=== PATIENT | female | born 1965 | race Caucasian/White ===

== ENCOUNTER → 2019-03-18 14:00 | Oncology outpatient (ONC) | payer BC, SELFPAY ==
[2019-03-04 12:52] VITALS: BP 125/69; PULSE 71; RESP 16; TEMP 37; O2SAT 100
[2019-03-04] MEDS: IRON SUCROSE 300 MG in SODIUM CHLORIDE 0.9% 100 ML 115 ML IV (13:24)
[2019-03-18] MEDS: IRON SUCROSE 300 MG in SODIUM CHLORIDE 0.9% 100 ML 115 ML IV (14:05)
--- NOTE | 2019-03-18 15:49 | PC.NURSE ---
Pt tolerated infusion w/o difficulty. Speech clear. RR equal and unlabored. Interacting with staff appropriately. reports feeling good. No acute s/s of distress noted.
== END ==
PROVIDERS: Family Provider Family Medicine; PCP Family Medicine
DX: D50.9 Iron deficiency anemia, unspecified (principal)
CPT/HCPCS: 96365; 96366; J1756

== ENCOUNTER → 2019-04-28 09:21 | Outpatient (CLI) | payer BC, SELFPAY ==
[2019-04-28 09:50] LABS: Add Manual Diff / Slide Review NO; Basophils Absolute Auto 0 /uL (0-100); Basophils Percent Auto 0.8 % (0-2); Eosinophils Absolute Auto 100 /uL (0-450); Eosinophils Percent Auto 1.2 % (2-4); Hematocrit 36.9 % (36-46); Hemoglobin 12.3 g/dL (12.0-16.0); Lymphocytes Absolute Auto 1600 /uL (1100-4500); Lymphocytes Percent Auto 35.1 % (25-40); Mean Corpuscular HGB Conc 33.3 % (30-36); Mean Corpuscular Hemoglobin 25.1 PG (26-34); Mean Corpuscular Volume 75.4 fL (80-100); Monocytes Absolute Auto 400 /uL (0-900); Monocytes Percent Auto 9.5 % (3-14); Neutrophils Absolute Auto 2500 /uL (1500-7000); Neutrophils Percent Auto 53.4 % (50-75); Platelet Count 291 X10^3/uL (150-400); Red Blood Cell Count 4.89 X10^6/uL (4.0-5.2); Red Cell Distribution Width 25.6 % (11.6-14.8); White Blood Cell Count 4.6 X10^3/uL (4.5-11.0)
[2019-04-28 10:17] LABS: Hypochromasia 1+; Poikilocytosis 1+
[2019-04-28 10:18] LABS: Anisocytosis 2+
== END ==
PROVIDERS: Family Provider Family Medicine; PCP Family Medicine
DX: Z01.818 Encounter for other preprocedural examination (principal)
CPT/HCPCS: 36415; 85025; 86850; 86900; 86901

== ENCOUNTER 2019-05-03 11:00 | Observation (INO) | payer BC, SELFPAY ==
[2019-04-29 15:15] VITALS: BMI 28.8
[2019-05-02] VITALS (27 sets, daily range): BP systolic 60–138; BP diastolic 30–98; PULSE 77–131; RESP 16–24; TEMP 36.1–37; O2SAT 95–100; BMI 28.8
--- NOTE | 2019-05-02 | PATH_ITS ---
[facility] Accession Number: [id number] . 01 Material submitted: . uterus - UTERUS AND CERVIX . 02 Diagnosis: Uterus and Cervix, Hysterectomy (Weight 387 grams, Submitted As Multiple Pieces): Cervix with no significant histomorphologic abnormality; negative for dysplasia or malignancy. Endocervix with acute and chronic endocervicitis, benign microglandular hyperplasia, and prominent Nabothian gland cysts. Myometrium with adenomyosis. MRV 05/05/2019 1146 Local . 02 Electronically signed: . Daphney Beckett MD, Pathologist NPI- [id number] . 01 Gross description: . Received in formalin, labeled uterus and cervix, is a uterus in multiple pieces (387 grams, 19.2 x 10.0 x 7.2 cm in aggregate). The ovaries and fallopian tubes are absent. The specimen cannot be oriented as to anterior and posterior. The cervix (2.2 cm AP, 2.5 ML) has a transverse os and patent endocervical canal. Lined with multiple cystic cavities (0.1 cm-0.7 cm) containing clear colorless gelatinous material. The upper uterine body is distorted making the endometrium and myometrium difficult to grossly measure. The cut surface is dalton with a whorled appearance. The serosa is pale dalton, smooth and shiny. Section code: (A1) cervix; (A2) cervix, opposite side; (A3-A8) parenchyma, signs sales representative. ([id number]) /MRV 05/04/2019 2120 Local . 02 Pathologist provided ICD-10: N80.0 . 02 CPT . 383414 Performed at: [address], [place], [place] [id number] MD Tyrone Bean MD Phone: [phone] Performed at: 02 [facility] [id number] [place] [id number] MD Dianne Lara MD Phone: [phone]
--- NOTE | 2019-05-02 07:21 | SUR.OPER ---
Lithotomy on padded OR bed, head on pillow, arms secured on padded arm boards at <90 degrees abduction. Legs secured in padded yellow fins stirrups.
--- NOTE | 2019-05-02 07:22 | PM.PREOP ---
Pre-operative Note Interval Note History & Physical reviewed/Exam performed by Physician: Yes Changes to H&P: No ASA Class (for procedural sedation): II
[2019-05-02] MEDS: LACTATED RINGERS 1,000 ML 42 ML IV ×2 (07:24→08:56)
[2019-05-02] MEDS: ACETAMINOPHEN 325 MG TABLET 975 MG PO (07:26)
[2019-05-02] MEDS: SCOPOLAMINE 1 PATCH TOP ×2 (07:26)
[2019-05-02] MEDS: CELECOXIB 200 MG CAPSULE 400 MG PO (07:26)
[2019-05-02] MEDS: CEFOTETAN 2 GM/50 ML PIGGYBACK IV (07:41)
[2019-05-02] MEDS: BUPIVACAINE 0.5% W/ EPI (PF) 10 ML VIAL 15 ML INJ (08:06)
--- NOTE | 2019-05-02 09:32 | PM.GYNOP.1 ---
Operative Date/Time/Diagnoses Date of procedure: 05/02/19 Time of procedure: 09:32 Pre-op diagnosis: Menometrorrhagia Anemia Adenomyosis Post-op diagnosis: same Procedure & Clinicians Procedure: Procedures Operation Date: 05/02/19 07:45 Actual Procedures Side Surgeon p Vaginal Hysterectomy Fan Cheema MD Indications: Menometrorrhagia Adenomyosis Anemia Surgeon: Fan Cheema Professor Of Communication And Writing: Mehreen William Anesthesia Type: General (Laryngeal mask anesthesia) Operative Notes Closure Type: primary Specimen(s): uterus Estimated blood loss (mL): 200 Blood products transfused: none Procedure in detail: The patient was placed supine upon the operating table and anesthetized. She was then placed in the dorsal lithotomy position and examined under anesthesias. The patient was then draped and prepared in usual fashion. a posterior weighted retractor was set in place Madina repeat character was placed anteriorly. Uterine cervix is grasped with two tooth tenacula. Circumferential injection of 0.5% Marcaine and 1 to [id number] epinephrine was then performed without incident. A sharp knife incision was then made circumferentially around the cervix. The bladder was dissected down sharply and pushed in a cephalad direction. Peritoneal cavity was open. Posterior peritoneum was then opened through the vagina. A large posterior weighted retractor was set in place. The uterosacral ligaments were bilaterally clamped and size is suture ligated with 1. Chromic suture. these pedicles were held. The cardinal ligaments were then bilaterally clamped incised and suture ligated. Uterine vessels were bilaterally clamped incised and suture ligated. 3 additional clamps were then taken. If this juncture visualization was impossible to get to the tubo-ovarian round period the cervix and part of the lower uterine segment were then amputated and serial bites were taken to the fundus until the uterus could be delivered. The left tube over and rounds were clamped free tied and suture ligated. The right tubo-ovarian rounds were clamped incised free tied and suture ligated. The uterus was removed in toto. Pedicles were looked at and there was one bleeding from the inferior portion of the uterosacral ligament on the left-hand side which was grasped and suture ligated. No further bleeding points were seen. The perineum was closed with a running 0 chromic suture. no bleeding points were seen. Angle sutures of 1. Chromic suture were then placed. the vaginal cuff was closed with chromic suture. no bleeding points were seen. The bladder was emptied and the urine was perfectly clear. There was no bleeding at the end of the procedure. patient was taken to the recovery room in satisfactory condition Post-operative Plan for aftercare: Acute care
[2019-05-02] MEDS: fentaNYL 100 MCG/2 ML INJ IV ×4 (09:40→09:55)
--- NOTE | 2019-05-02 09:52 | SUR.PHASEI ---
reassessed pt pain level, pt stated low thinking this author was asking location of pain, described to pt the 0 - 10 pain scale, pt. states 10.
--- NOTE | 2019-05-02 09:58 | SUR.PHASEI ---
@ 0945 placed pt in trendelenburg due to hypotensive
[2019-05-02] MEDS: HYDROMORPHONE 2 MG INJ IV ×8 (10:00→10:35)
--- NOTE | 2019-05-02 10:04 | SUR.PHASEI ---
Pt remains in trendelenburg B/P improving. Pt rating pain @ a 10
--- NOTE | 2019-05-02 10:11 | SUR.PHASEI ---
medicating as ordered, pt continues to rate pain at a 10. B/P on low side, remains in trendeleburg position.
[2019-05-02] MEDS: LACTATED RINGERS 1,000 ML 120 ML IV (10:30)
--- NOTE | 2019-05-02 10:49 | SUR.PHASEI ---
pt. is currently sleeping soundly since 1040. VVS O2 sats 98 room air
--- NOTE | 2019-05-02 11:04 | SUR.PHASEI ---
pt remains asleep
[2019-05-02] MEDS: OXYCODONE/ACETAMINOPHEN 5/325 TABLET 2 TAB PO ×3 (11:55→21:57)
[2019-05-02] MEDS: LACTATED RINGERS 1,000 ML 100 ML IV ×2 (12:15→23:42)
--- NOTE | 2019-05-02 13:27 | PC.NURSE ---
Assess- Patient had a vaginal hysterectomy. When she first came up to the floor she was in crying and in a lot of pain. Given 2 percocet for discomfort and helpful. Patient did have a moderate amount of red blood to her pad, so this was changed. She has ivf infusing and her skin check was clear. Resting comfortably at this time.
[2019-05-02] MEDS: SODIUM CHLORIDE 0.9% 1,000 ML 1000 ML IV (13:30)
--- NOTE | 2019-05-02 14:07 | PC.NURSE ---
Addendum entered by Kayla Kessler R.N. 05/02/19 15:05: Patient given iv dilaudid and only a bit helpful. She is more calm but still having cramps. Dr. Cheema is aware of pts bp going low and her pain level. He suggested giving the 1mg of dilaudid, and gave orders for the normal saline bolus. Her ivf is back to LR and infusing well. Will give report to LISA Leon. Current BP 126/80,p74 Original Note: Student Nurse got patient up to the bsc to void and she states her lips turned white and face pale. Came out to get RN. BP down to 60/30, She did not pass out and was still coherent. RA sats 99%, she did have a feeling of r.upper arm pain, gas pain. Complains now of more pain. She has a NS bolus hanging. Back to bed and BP have been steadily rising. At 1345 BP 60/30 p117. 1355 110/72, 1357, 107/55 and now 130/70 with a pulse of 80. is at bedside and pt is complaining of pain to lower abdomen , she states that this a cramping feeling.
[2019-05-02] MEDS: HYDROMORPHONE 1 MG INJ IV ×2 (14:21→19:13)
[2019-05-02] MEDS: ONDANSETRON 4 MG/2 ML INJ IV (16:00)
--- NOTE | 2019-05-02 16:36 | PC.NURSE ---
Addendum entered by Carolyn Galvez R.N. 05/02/19 23:33: Pt now able to transfer to [facility] with promise NOONAN. Reports feeling so much better, I'm able to turn my head and I can rest. Eyes are bright and no longer tearful. Thanks staff for assistance this evening shift. Dr. William was informed by telephone. Addendum entered by Carolyn Galvez R.N. 05/02/19 22:54: Pt reports no relief in neck pain, diaphragm pain 9/10 as long as I don't move. No signs of respiratory distress. Pt states right posterior neck is source of greatest pain, The vein back there. Has removed kpad and replaced with ice. Dr. William phones in to check on pt and was informed. Valium 5 mg given to pt with explanation. Not tolerating scd's d/t acute pain. Spouse has left for the evening. Addendum entered by Carolyn Galvez R.N. 05/02/19 21:03: Phone call to Dr. William to report H and H this evening of 8.0 and 24.1 and ekg normal sinus rhythm. Also pt reports right rib cage and neck pain 9/10. Orders for k-pad and ibuprofen per Dr. William. Addendum entered by Carolyn Galvez R.N. 05/02/19 20:47: Per R.T. EKG looks fine. Awaiting lab results. Pt now calmer as spouse is present. No longer tearful. States pain better if lies perfectly still. Head of bed remains elevated. HR 101 with 02 sats 99% on room air. Pt is able to speak. Addendum entered by Carolyn Galvez R.N. 05/02/19 20:13: R.T. in to complete EKG. Addendum entered by Carolyn Galvez R.N. 05/02/19 20:09: Lab in to draw blood. HR 101 with BP 127/71. Addendum entered by Carolyn Galvez R.N. 05/02/19 20:03: Attempts to reach medical doctor exceptional children's teacher unsuccessful as on hold to reach service > 10 minutes. Phone call to Dr. William on-call for OB to discuss. Orders for stat ekg and cbc obtained and R.T. and lab informed. Pt remains tearful with spouse @ bedside. SCD's on and off all evening long as pt can tolerate. Ankle waving encouraged as pt is able. Room air 100%. Encouraged slow paced breathing in through nose and out through mouth. Pt was reassured action begin taken to manage symptoms. Addendum entered by Carolyn Galvez R.N. 05/02/19 19:32: Pt amends previous complaint to state not so much chest discomfort as right posterior neck and right shoulder and rib cage pain. Pt reports difficult to breathe when this occurs. Page to on-call provider to discuss. Addendum entered by Carolyn Galvez R.N. 05/02/19 19:26: Pt is tearful with head of bed elevated stating having chest and right shoulder pain and trouble breathing. 02 sats on room air 100% with HR 108. Pt reports this comes on suddenly and pt describes this feeling like a spasm. Encouraged pt to slow down breathing and breathe with this display card writer. Administered 1 mg iv dilaudid for pain and pt begins to relax. Ice to right shoulder. Pt reports did share this complaint with Dr. Cheema during rounds this evening shift. Pt reports spasm easing and able to breathe easier. Continuous monitor remains in place with 02 sats 100%. Addendum entered by Carolyn Galvez R.N. 05/02/19 18:44: Up to commode without any difficulty. Requires minimal assistance. Urine is pink in color without clots. Scant vaginal bleeding on pad. Denies nausea with movement. Has scopolamine patch behind right ear. Taking oral foods and fluids. Rates pain /10, but states will wait for percocet @ 1930. BL calf scd's replaced. Original Note: Pt lying quietly in bed with spouse @ bedside. Reports deep abdominal pain with movement 10/10. Wincing noted even @ rest. Pt reports pain is cramping in nature. Knees of bed raised folded blankets to abdomen to splint. Pt c/o right shoulder pain and this was wrapped in warm blanket. Pt given percocet with apple juice. Pt reports needs to void. Prefers commode use over bedpan. Pt instructed to sit on edge of bed and blood pressure was checked. Systolic greater than 100. Pt denies dizziness. Transferred to [facility] and denies dizziness. BP 114/76 with HR 130. No void and pt c/o nausea upon return to bed. Zofran administered. HR low 70's. Ice provided to right shoulder. Dr. Cheema making evening rounds and was made aware of all of these events. H and H in a.m. as ordered per Dr. Cheema. Pt was encouraged to call for needs and to allow staff to assist with moving in and out of bed. Pt acknowledges agreement and understanding.
[2019-05-02 20:39] LABS: Add Manual Diff / Slide Review NO; Basophils Absolute Auto 0 /uL (0-100); Eosinophils Absolute Auto 0 /uL (0-450); Lymphocytes Absolute Auto 600 /uL (1100-4500); Mean Corpuscular HGB Conc 33.1 % (30-36); Mean Corpuscular Hemoglobin 25.2 PG (26-34); Mean Corpuscular Volume 76.3 fL (80-100); Monocytes Absolute Auto 700 /uL (0-900); Monocytes Percent Auto 5.5 % (3-14); Neutrophils Absolute Auto 11300 /uL (1500-7000); Neutrophils Percent Auto 89.5 % (50-75); Platelet Count 274 X10^3/uL (150-400); Red Blood Cell Count 3.16 X10^6/uL (4.0-5.2); Red Cell Distribution Width 24.6 % (11.6-14.8); White Blood Cell Count 12.6 X10^3/uL (4.5-11.0)
[2019-05-02 20:42] LABS: Hematocrit 24.1 % (36-46)
[2019-05-02 21:04] LABS: Anisocytosis 2+; Microcytosis 1+; Ovalocytes 1+; Poikilocytosis 2+; Tear Drop Cells 1+
[2019-05-02] MEDS: DOCUSATE 250 MG CAPSULE PO (21:18)
[2019-05-02] MEDS: IBUPROFEN 600 MG TABLET PO (21:18)
[2019-05-02] MEDS: diazePAM 5 MG TABLET PO (22:50)
[2019-05-03] MEDS: HYDROMORPHONE 1 MG INJ IV (02:36)
[2019-05-03] MEDS: OXYCODONE/ACETAMINOPHEN 5/325 TABLET 2 TAB PO ×2 (02:43→08:11)
[2019-05-03 05:17] VITALS: BP 113/59; PULSE 79; RESP 16; TEMP 36.9; O2SAT 100
--- NOTE | 2019-05-03 05:56 | PC.NURSE ---
Addendum entered by Darrion Spence R.N. 05/03/19 07:09: Telephoned Dr. William at 0700, to alert her of critical H&H results 6.7,20.3, she ordered repeat labs H and H at 0945. She said she would text DR. Cheema. She said Dr. Chemea should be rounding on patient this AM. Original Note: Patient continued to complain of 10/10 pain on this shift in her abdomen. Previous shift report relayed anxiety and 5mg diazepam given. Patient seems to have less anxiety this shift and is getting sleep. Patient was up to bedside commode doubled over, 2-5/325 percocet given at 0243. Patient had scant ammt. of blood on bashir pad. Patient was only up to bedside commode w/ quite a bit of assistance. Heating pad is still in place. VSS, lung sounds clear bilaterally. Bed is low and locked, call light within reach, bed alarm activated. Pt refused SCD's this shift.
[2019-05-03 06:51] LABS: Add Manual Diff / Slide Review NO; Basophils Absolute Auto 0 /uL (0-100); Basophils Percent Auto 0.1 % (0-2); Eosinophils Absolute Auto 0 /uL (0-450); Lymphocytes Absolute Auto 1100 /uL (1100-4500); Lymphocytes Percent Auto 12.8 % (25-40); Mean Corpuscular HGB Conc 33.2 % (30-36); Mean Corpuscular Hemoglobin 25.6 PG (26-34); Mean Corpuscular Volume 77.3 fL (80-100); Monocytes Absolute Auto 1000 /uL (0-900); Monocytes Percent Auto 11.3 % (3-14); Neutrophils Absolute Auto 6600 /uL (1500-7000); Neutrophils Percent Auto 75.8 % (50-75); Platelet Count 199 X10^3/uL (150-400); Red Blood Cell Count 2.62 X10^6/uL (4.0-5.2); Red Cell Distribution Width 24.6 % (11.6-14.8); White Blood Cell Count 8.7 X10^3/uL (4.5-11.0)
[2019-05-03 06:54] LABS: Hematocrit 20.3 % (36-46)
[2019-05-03 06:55] LABS: Hemoglobin 6.7 g/dL (12.0-16.0)
[2019-05-03 07:11] LABS: Platelet Estimate Adequate on smear
[2019-05-03 07:12] LABS: Anisocytosis 2+; Microcytosis 1+; Ovalocytes 1+; Poikilocytosis 1+
[2019-05-03 07:13] LABS: Hypochromasia 2+
[2019-05-03 07:20] VITALS: BP 109/58; PULSE 85; RESP 20; TEMP 37.1; O2SAT 97
[2019-05-03 07:35] VITALS: BP 120/72
--- NOTE | 2019-05-03 07:48 | P.PN_ITS ---
Subjective Subjective Date Patient Seen: 05/03/19 Time Patient Seen: 07:48 Interval history: The patient is a 54 year status post vaginal hysterectomy for a fairly large uterus. The uterus was morcellated at time of surgery. Bleeding was more than normal for vaginal hysterectomy because of uterine size. The estimated blood loss was 200 cc. The patient began with a hemoglobin of 11.7. She had problems with severe anemia in the past. Postoperatively she did well. However should her pain which was probably secondary to blood irritating her diaphragms. She was voiding in good volumes. She was afebrile with stable vital signs. Patient had a fair amount of pelvic discomfort. Hemoglobins however when from 11.7 to 8.0 to 6.4. She is hemodynamically stable and actually feels better than she did yesterday morning. A hemoglobin is ordered for 930. Exam Vital Signs (past 8 hours): - 05/03/19 05:17 Temperature 98.4 F Pulse Rate 79 Respiratory Rate 16 Blood Pressure 113/59 L Pulse Oximetry 100 Oxygen Delivery Method Room Air Oxygen Flow Rate 0 Narrative Exam Narrative: Abdomen is not distended. It is not particularly tender There are good bowel sounds. Vaginal drainage is scant Extremities without edema or pain Chest clear to percussion auscultation shoulder pain much improved Objective Labs Result Diagrams: 05/03/19 05:45 Labs: Laboratory Results - last 24 hr 05/02/19 05/03/19 20:12 05:45 WBC 12.6 H 8.7 RBC 3.16 L 2.62 L Hgb 8.0 L 6.7 L* Hct 24.1 L 20.3 L* MCV 76.3 L 77.3 L MCH 25.2 L 25.6 L MCHC 33.1 33.2 RDW 24.6 H 24.6 H Plt Count 274 199 Neut % (Auto) 89.5 H 75.8 H Lymph % (Auto) 5.0 L 12.8 L [place] % (Auto) 5.5 11.3 Eos % (Auto) 0.0 L 0.0 L Baso % (Auto) 0.0 0.1 Neut # (Auto) 85314 H 6600 Lymph # (Auto) 600 L 1100 [place] # (Auto) 700 1000 H Eos # (Auto) 0 0 Baso # (Auto) 0 0 Platelet Estimate Adequate on smear RBC Morphology See below See below Hypochromasia 2+ H Poikilocytosis 2+ H 1+ H Anisocytosis 2+ H 2+ H Microcytosis 1+ H 1+ H Tear Drop Cells 1+ H Ovalocytes 1+ H 1+ H Assessment & Plan Post-op Postoperative Procedures: Procedures Operation Date: 05/02/19 07:45 Actual Procedures Side Surgeon p Vaginal Hysterectomy Fan Cheema MD Postoperative day: 1 Postoperative status: doing well, marginal pain control and anemia Postoperative status narrative: Hemoglobin is being followed actively. Another hemoglobin is ordered for 930 and we will reassess the need for transfusion at that time. Postoperative plan: see orders, ambulate and advance diet Time Spent With Patient Time with patient: less than 15 minutes
[2019-05-03] MEDS: DOCUSATE 250 MG CAPSULE PO ×2 (08:11→20:29)
[2019-05-03] MEDS: HYDROCODONE/ACET 5/325 TABLET 1 TAB PO ×2 (11:02→14:36)
[2019-05-03 11:25] VITALS: BP 111/60; PULSE 86; RESP 18; TEMP 36.9; O2SAT 98
--- NOTE | 2019-05-03 11:44 | PC.NURSE ---
Addendum entered by Kayla Kessler R.N. 05/03/19 15:31: Started on ferrous gluconate and given 1 vicodin.. This seems to be working well for patients discomfort. Resting in bed now and denies any further pain. Addendum entered by Kayla Kessler R.N. 05/03/19 12:43: Patients crit 6.5 and 20.4, ordered for ferrous gluconate bid, bumped vicodin up to 2 tabs if needed, to heplock and d/c ivf, and to use dilaudid iv for breakthrough pain. She is feeling better. She is on a clear liquid diet, but states if she can tolerate other food it is okay for her to eat. Will put in a diet for as tolerated. Original Note: Assess- Patient complains of pain to lower abdomen. Given 2 percocet and this lasted patient for about 3 hours. Switched her to vicodin and will recheck pain level in one hour. She has minimal bleeding to bashir pad and is voiding without difficulty. H&H lower this morning at 6.7 and 20.3. Just drawn again at 1100 am, will text as soon as results are ready. Patient has a heating pad to her lower abdomen and her is here for support.
[2019-05-03 12:03] LABS: Hematocrit 20.4 % (36-46); Hemoglobin 6.8 g/dL (12.0-16.0)
[2019-05-03] MEDS: FERROUS GLUCONATE 324 MG TABLET PO ×2 (14:36→20:30)
--- NOTE | 2019-05-03 15:46 | CM.IDA ---
Initial DCP Assessment Note: Pt is a 54 yo female, resident of [place]. Pt is POD#1 from vaginal hysterectomy. h/o anemia and endometriosis PCP: Eri Quiroz Payer: [facility] Out of [facility] Met w/pt and her this morning at beside, explained role. Pt and spouse admit they are tired and yesterday was a very long day; pt had a severe drop in BP and had more blood loss than expected. This SCALE EXPERT had supportive conversation w/pt and spouse about pt's recovery and pt/spouse are confident about return home when medically ready; they plan to ask friends for assistance Sunday when spouse needs to return to work. P: DC home when medically cleared w/ supportive spouse and friends/family IVETT Loera
[2019-05-03] MEDS: HYDROCODONE/ACET 5/325 TABLET 2 TAB PO ×2 (15:47→20:30)
[2019-05-03 16:04] VITALS: BP 131/50; PULSE 114; RESP 18; TEMP 36.9; O2SAT 100
[2019-05-03 19:28] VITALS: BP 114/58; PULSE 107; RESP 16; TEMP 36.6; O2SAT 99
[2019-05-04] VITALS: BP 130/62; PULSE 81; RESP 16; TEMP 36.9; O2SAT 100
[2019-05-04 04:00] VITALS: BP 136/72; PULSE 89; RESP 16; TEMP 37.1; O2SAT 100
[2019-05-04] MEDS: HYDROCODONE/ACET 5/325 TABLET 2 TAB PO ×2 (04:07→09:39)
--- NOTE | 2019-05-04 06:24 | PC.NURSE ---
Patient scant drainage on bashir pad, pain level 7/10 on this shift, patient seems to have reduced anxiety. Patient is still using heating pad.
[2019-05-04 08:32] VITALS: BP 120/59; PULSE 70; RESP 16; TEMP 36.7; O2SAT 100
--- NOTE | 2019-05-04 08:44 | P.DS_ITS ---
History of Present Illness History of Present Illness Date Patient Seen: 05/04/19 Time Patient Seen: 08:44 Chief complaint: Menometrorrhagia Narrative: The patient is a 54 year with a longstanding history of menometrorrhagia. Patient developed severe anemia hemoglobins in the six range. Patient was treated with hormonal therapy. Patient desired surgical correct ion. Exam shows the patient have a large 12-14 week size adenomyomatosis uterus. The patient was taken to surgery and underwent a vaginal hysterectomy. It was large uterus which had to be morcellated and there was more than the usual blood loss. The patient's hemoglobin fell from 12/31 to eight and stabilized at 6.4. Discharge Providers Provider Date of admission: 05/03/19 11:00 Discharge Date: 05/04/19 Discharge provider: Fan Cheema MD Summary Hospital Course Discharge Diagnosis: Menometrorrhagia Anemia Adenomyosis Hospital Course: Patient is a 54 year menometrorrhagia who underwent a vaginal hysterectomy of a large adenomyomatosis uterus. Patient had more than average bleeding at time of surgery but her hematocrit stabilized at approximately 20. She remained afebrile I will stable vital signs and was progressively ambulated. She was taking p.o. well. She was voiding a good volumes. And she had no vaginal bleeding. Status at Discharge Cognitive/behavioral status at discharge: oriented Functional status at discharge: independent ambulation Overall status at discharge: patient is progressing back to baseline Time Spent with Patient Time spent: Less than 30 minutes Exam Vital Signs (past 8 hours): - 05/04/19 00:00 05/04/19 04:00 Temperature 98.5 F 98.8 F Pulse Rate 81 89 Respiratory Rate 16 16 Blood Pressure 130/62 136/72 Pulse Oximetry 100 100 Oxygen Delivery Method Room Air Oxygen Flow Rate 0 Narrative Exam Narrative: Abdomen is soft and nondistended Minimal vaginal discharge Objective Labs Result Diagrams: 05/03/19 11:28 Labs: Laboratory Results - last 24 hr 05/03/19 11:28 Hgb 6.8 L* Hct 20.4 L* Discharge Plan Discharge Plan Patient Disposition: Home Discharge orders & Medications Prescriptions: New hydrocodone-acetaminophen 5-325 mg Tablet 1 tab PO Q4HR PRN (Reason: Pain, Moderate (4-6)) Qty: 10 RF: 0 docusate sodium 250 mg Capsule 250 mg PO BID Qty: 10 RF: 0 ferrous gluconate 324 mg (38 mg iron) Tablet 324 mg PO BID Qty: 60 RF: 0 ibuprofen 800 mg tablet 800 mg PO Q6H Qty: 30 RF: 0 Discontinued medroxyprogesterone 10 mg tablet 20 mg PO DAILY Qty: 90 RF: 0 hydrocodone-acetaminophen 7.5-325 mg tablet 1 tab PO BEDTIME PRN (Reason: Pain) RF: 0 Follow up/Referrals: Fan Cheema MD [Physician] - 2 Weeks Discharge Health Status Multidrug resistant organism: No MDRO Diet/Activity/Treatments Diet: Diet as Tolerated Activity: Up ad rita Other treatments: May shower in bathe Skin/Wound/Dressing Care Report to your healthcare provider any signs of infection, such as:: chills, fever, increased pain, unusual drainage and unusual redness Dressing: No dressing Other wound treatment: Keep perineum clean and dry Visit Report/Discharge Packet Instructions: DI for Hysterectomy, DI for Prescription Opioid Use Stand Alone Forms: Surgery Discharge Discharge Data Attending Provider: Fan Cheema Admit Date/Time: 05/03/19 11:00
[2019-05-04] MEDS: DOCUSATE 250 MG CAPSULE PO (09:39)
[2019-05-04] MEDS: FERROUS GLUCONATE 324 MG TABLET PO (09:39)
--- NOTE | 2019-05-04 10:54 | PC.NURSE ---
Assess-Patient given 2 vicodin for complaints of 7/10 pain. Minimal if any bleeding to patients bashir pad. She is voiding fine. Patient has been discharged and will be leaving at 1100am.
== END 2019-05-04 11:15 | disposition home or self-care (01) ==
LOC: OR 05-04 08:18
PROVIDERS: Obstetrics & Gynecology; Family Provider Family Medicine
PROC: (CPT 58260; principal; 2019-05-02 07:45)
DX: N80.0 Endometriosis of uterus (principal); D64.9 Anemia, unspecified
CPT/HCPCS: 58290; 36415; 85014; 85018; 85025; 93005; 93010; G0378; J1100; J1170; J2250; J2405; J2704; J3010